=== PATIENT | female | born 1940 | race Caucasian/White ===

== ENCOUNTER 2019-08-27 15:55 | Inpatient (IN) | payer MEDICARE, OTHER ==
[~2019-08-27] VITALS: Ht 157.5 cm; Wt 43.5 kg
--- NOTE | 2019-08-27 16:10 | NUR ---
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 PT STATES "UNABLE TO SLEEP, FEELING ANXIOUS, FEELS UNPRODUCTIVE, NOT MAINTAINING HEALTH AND STATES SHE DOESN'T WANT TO LIVE." PT STATES FEELING ISOLATED AND IS LOSING HER MIND. PT UNABLE TO PROVIDE A PLAN OF SELF CARE AT THIS MIRNA STATING "ANXIETY STOPS ME FROM LIVING". PT ENDORSES DEPRESSIVE THOUGHTS WITH SI PLAN TO GET HIT BY A BUS. PT STATES "UNABLE TO SLEEP, FEELING ANXIOUS, FEELS UNPRODUCTIVE, NOT MAINTAINING HEALTH AND STATES SHE DOESN'T WANT TO LIVE." PT STATES FEELING ISOLATED AND IS LOSING HER MIND. PT UNABLE TO PROVIDE A PLAN OF SELF CARE AT THIS MIRNA STATING "ANXIETY STOPS ME FROM LIVING". UPON FACE TO FACE PT REPORTS PASSIVE SI WITH THOUGHTS OF GETTING HIT BY A BUS. PT DNIES AH/VH. MOOD IS DEPRESSED, ANXIOUS, FLAT. PT IS AMBULATORY WITH UNSTEADY GAIT. SPEECH IS CLEAR AND PT A+OX3. PT DISHEVELED. PT IS A FALL RISK.VSS, MEDICATION RECONCILIATION DONE BY DR. LLOYD. ALLERGIES RECORDED. VALUABLES NOTED AND PLACED IN SAFE. PT GIVEN PATIENT'S RIGHTS AND GUIDE TO PRESCRIPTION MEDICATION. PT ORIENTED TO THE UNIT. WILL CONT TO MONITOR Q15MIN AND PRN FOR SAFETY AND BEHAVIOR.
[2019-08-27 16:38] VITALS: BP 147/89
[2019-08-27] MEDS ORDERED: ASPI-605 PO (16:41)
[2019-08-27] MEDS ORDERED: FORTICAL (16:41)
[2019-08-27] MEDS ORDERED: MAG355OR18 PO (16:41)
[2019-08-27] MEDS ORDERED: MIRT30TA PO (16:43)
[2019-08-27] MEDS ORDERED: METO25TA4 PO (16:43)
[2019-08-27] MEDS ORDERED: LIFITEGRAST OP (16:43)
[2019-08-27] MEDS ORDERED: MAG HYDROX/AL HYDROX/SIMETH 30 ML UDC PO PRN (17:00)
[2019-08-27] MEDS ORDERED: BLOOD SUGAR DIAGNOSTIC 1 EACH STRIP IN ONE (17:00)
[2019-08-27] MEDS ORDERED: MAGNESIUM HYDROXIDE 30 ML UDC PO PRN (17:00)
[2019-08-27 18:32] VITALS: BP 147/71
[2019-08-27 20:14] VITALS: BP 138/83
[2019-08-28 08:00] VITALS: BP 151/89
[2019-08-28] MEDS: METOPROLOL SUCCINATE 25 MG TAB.SR.24H PO SCH (08:15)
[2019-08-28] MEDS: ASPIRIN EC 81 MG TABLET.DR PO SCH (08:15)
[2019-08-28] MEDS: clonazePAM 0.5 MG TABLET PO PRN ×2 (08:16→18:57)
[2019-08-28] MEDS: POLYVINYL ALCOHOL 15 ML BOTTLE EACHEYE PRN (12:16)
--- NOTE | 2019-08-28 14:22 | NUR ---
Group Note: SW went to patient's room to invite patient to attend today's support group at 1:00pm regarding holidays sensory activity and gratefulness being held in the activities room. Pt. was still having lunch and stated, "I want to do an exercise activity". SW informed pt. that a more clinical approach would be seen in SS Groups. However, SW encouraged pt. to suggest the idea of exercise activity to the case management coordinator for the future. SW encouraged pt. to attend or just sit in SS group. However, pt. expressed that she was not interested. Pt. presented with a flat affect and mood congruency.
[2019-08-28 16:00] VITALS: BP 135/81
[2019-08-28 21:14] VITALS: BP 121/62
[2019-08-28 21:24] VITALS: BP 121/62
[2019-08-28] MEDS: MIRTAZAPINE 15 MG TABLET PO SCH (22:07)
--- NOTE | 2019-08-29 06:19 | NUR ---
GPS RN NOTES: LABORATORY CAME TO DRAW MORNING LABS FOR PT. PT REFUSED FOR LABS TO BE DRAWN. EXPLAIN RISKS AND BENEFITS X3. PT STILL REFUSED. WILL CONT TO MONITOR.
[2019-08-29 08:00] VITALS: BP 132/78
[2019-08-29] MEDS: ASPIRIN EC 81 MG TABLET.DR PO SCH (08:48)
[2019-08-29] MEDS: METOPROLOL SUCCINATE 25 MG TAB.SR.24H PO SCH (08:48)
[2019-08-29] MEDS: clonazePAM 0.5 MG TABLET PO PRN (09:24)
[2019-08-29] MEDS: POLYVINYL ALCOHOL 15 ML BOTTLE EACHEYE PRN ×2 (09:27→22:28)
--- NOTE | 2019-08-29 09:28 | NUR ---
GPS RN NOTE: CLONAZEPAM ADMINISTERED PRN REQUESTED FOR ANXIETY
--- NOTE | 2019-08-29 11:20 | NUR ---
Family Contact: AYANA called Nereida ([phone]), pts daughter and DPOA, and discussed the pts initial discharge plan and treatment plan. It was discussed that the pt would return to live with her.
--- NOTE | 2019-08-29 11:46 | NUR ---
Initial Discharge Plan: Pt currently resides with her daughter and DPOA, Nereida ([phone]), in her home located at [address] [place] [address]. Per pts daughter, Nereida, the pt will continue to live with her in her home. SW will work with the pt and the MD regarding appropriate discharge planning. SW will form a safe and proper plan.
[2019-08-29 13:02] LABS: BASOPHILS % (AUTO) 0.6 % (0.0-2.0); EOSINOPHILS % (AUTO) 0.6 % (0.0-6.0); HEMATOCRIT 47 % (33-45); HEMOGLOBIN 15.5 g/dL (11.5-14.8); LYMPHOCYTES # (AUTO) 1.7 /CMM (0.8-4.8); LYMPHOCYTES % (AUTO) 20.8 % (20.0-44.0); MEAN CORPUSCULAR HGB CONC 33 g/dl (31.0-36.0); MEAN CORPUSCULAR VOLUME 92 fL (82-100); MONOCYTES # (AUTO) 0.7 /CMM (0.1-1.30); MONOCYTES % (AUTO) 8.6 % (2.0-12.0); NEUTROPHILS # (AUTO) 5.7 /CMM (1.8-8.9); NEUTROPHILS % (AUTO) 69.4 % (43.0-81.0); PLATELET COUNT (AUTO) 239 /CMM (150-450); RED BLOOD CELL COUNT(AUTO) 5.07 MIL/uL (4.0-5.2); WHITE BLOOD COUNT (AUTO) 8.2 K/uL (4.3-11.0)
[2019-08-29 13:15] LABS: CALCIUM, SERUM 9.3 mg/dL (8.5-10.1); POTASSIUM 4.4 mmol/L (3.5-5.1)
--- NOTE | 2019-08-29 14:55 | NUR ---
SS Group Note 08/29/19: SW to invite patient to attend today's support group at 1:00pm regarding Mindfulness in the activities room. Patient appears lethargic and has a flat affect that is mood congruent. Pt. stated she would be in attendance but did not show. SW will invite the pt. to at least sit in on next activity.
[2019-08-29 16:00] VITALS: BP 100/67
[2019-08-29] MEDS: ENSURE ENLIVE 237 ML LIQUID (VANILLA) PO SCH (16:43)
[2019-08-29 20:04] VITALS: BP 98/63
[2019-08-29] MEDS: MIRTAZAPINE 15 MG TABLET PO SCH (21:04)
[2019-08-29] MEDS: TEMAZEPAM 7.5 MG CAPSULE PO PRN (23:26)
[2019-08-29] MEDS: ACETAMINOPHEN 325 MG TABLET PO PRN (23:30)
--- NOTE | 2019-08-29 23:32 | NUR ---
GPS RN NOTES: PT STATED, "I CANT GO TO SLEEP." CHECKED VITALS AND WNL. OFFERED RESTORIL 7.5MG PO PRN. ADMINISTERED MEDICATION. PT TOLERATED WELL CONTINUE TO MONITOR
--- NOTE | 2019-08-29 23:34 | NUR ---
GPS RN NOTES: PT STATED, "I HAVE A HEADACHE. CAN I HAVE TYLENOL PLEASE?" ASKED RESIDENT PAIN SCALE PT SAID 3 OUT OF 10. ADMINISTERED TYLENOL 650MG PO PRN @2330. PT TOLERATED MED WELL. CONT TO MONITOR.
[2019-08-29 23:37] VITALS: BP 132/86
[2019-08-30 08:00] VITALS: BP 140/94
[2019-08-30] MEDS: ENSURE ENLIVE 237 ML LIQUID (VANILLA) PO SCH ×3 (09:12→17:47)
[2019-08-30] MEDS: METOPROLOL SUCCINATE 25 MG TAB.SR.24H PO SCH (09:12)
[2019-08-30] MEDS: ASPIRIN EC 81 MG TABLET.DR PO SCH (09:12)
[2019-08-30 16:00] VITALS: BP 110/68
[2019-08-30 20:00] VITALS: BP 119/60
[2019-08-30] MEDS: MIRTAZAPINE 15 MG TABLET PO SCH (20:55)
[2019-08-30] MEDS: TEMAZEPAM 7.5 MG CAPSULE PO PRN (20:56)
[2019-08-30] MEDS: POLYVINYL ALCOHOL 15 ML BOTTLE EACHEYE PRN (20:56)
[2019-08-30] MEDS: XIIDRA 5% OP SCH (21:00)
[2019-08-30] MEDS: EYE OP SCH (21:00)
[2019-08-31 08:00] VITALS: BP 123/67
[2019-08-31] MEDS: ASPIRIN EC 81 MG TABLET.DR PO SCH (08:27)
[2019-08-31] MEDS: METOPROLOL SUCCINATE 25 MG TAB.SR.24H PO SCH (08:28)
[2019-08-31] MEDS: EYE OP SCH ×2 (08:29→21:00)
[2019-08-31] MEDS: XIIDRA 5% OP SCH ×2 (08:29→21:00)
[2019-08-31] MEDS: ENSURE ENLIVE 237 ML LIQUID (VANILLA) PO SCH ×3 (08:33→16:58)
[2019-08-31] MEDS: ACETAMINOPHEN 325 MG TABLET PO PRN (08:40)
[2019-08-31 16:00] VITALS: BP 130/70
[2019-08-31 19:45] VITALS: BP 114/71
[2019-08-31] MEDS: MIRTAZAPINE 15 MG TABLET PO SCH (21:19)
[2019-08-31] MEDS: TEMAZEPAM 7.5 MG CAPSULE PO PRN (21:19)
[2019-08-31] MEDS: POLYVINYL ALCOHOL 15 ML BOTTLE EACHEYE PRN (21:26)
--- NOTE | 2019-08-31 21:26 | NUR ---
GPS RN NOTE: PATIENT REFUSED XIIDRA EYE DROP AND REQUESTED TO HAVE THE ARTIFICIAL TEAR INSTEAD BECAUSE PER PATIENT, SHE CAN NOT SLEEP WITH XIIDRA. WILL CONTINUE TO MONITOR Q15 MINS FOR SAFETY
[2019-09-01] MEDS: clonazePAM 0.5 MG TABLET PO PRN (07:01)
[2019-09-01 08:00] VITALS: BP 146/83
[2019-09-01] MEDS: ENSURE ENLIVE 237 ML LIQUID (VANILLA) PO SCH ×3 (08:39→17:02)
[2019-09-01] MEDS: METOPROLOL SUCCINATE 25 MG TAB.SR.24H PO SCH (08:39)
[2019-09-01] MEDS: XIIDRA 5% OP SCH ×2 (08:42→21:00)
[2019-09-01] MEDS: EYE OP SCH ×2 (08:42→21:00)
[2019-09-01] MEDS: ASPIRIN EC 81 MG TABLET.DR PO SCH (08:43)
[2019-09-01] MEDS: POLYVINYL ALCOHOL 15 ML BOTTLE EACHEYE PRN ×2 (09:24→21:40)
--- NOTE | 2019-09-01 09:27 | NUR ---
RN NOTE: PRN ARTIFICIAL TEARS WERE GIVEN FOR DRY EYES
--- NOTE | 2019-09-01 10:21 | NUR ---
Family Contact: SW called Nereida ([phone]), pts daughter and DPOA, and left a voicemail message stating that she would like to discuss the pts treatment.
--- NOTE | 2019-09-01 14:14 | NUR ---
PC Hearing Notification: SW called Nereida ([phone]), pts daughter and DPOA, and informed her of the hearing and what it entails.
--- NOTE | 2019-09-01 15:05 | NUR ---
GROUP NOTE: SW encouraged pt to participate in group therapy discussing "discharge planning," pt refused to attend and stated she did not need to be here and wanted to leave today. SW provided intervention and discussed pts depression and suicidal ideation, pt in denial stating she never made suicidal statements and was not crazy. Pt is isolative and withdrawn.
[2019-09-01 16:00] VITALS: BP 104/70
[2019-09-01 20:46] VITALS: BP 112/63
[2019-09-01] MEDS: MIRTAZAPINE 15 MG TABLET PO SCH (21:37)
[2019-09-01] MEDS: ACETAMINOPHEN 325 MG TABLET PO PRN (21:43)
--- NOTE | 2019-09-01 21:44 | NUR ---
GPS RN NOTES: PT REFUSED XIIDRA 5% EYE DROP. EXPLAIN RISKS AND BENEFITS. STILL REFUSED. PT STATED, " I WANT MY OTHER EYE DROPS." ADMINISTERED ARTIFICIAL TEARS TO PT. PT TOLERATED WELL. CONT TO MONITOR
--- NOTE | 2019-09-01 21:48 | NUR ---
GPS RN NOTES: PT C/O OF HEAD ACHE. PT STATED, "CAN I HAVE TYLENOL?" ADMINISTERED TYLENOL 650 MG PO PRN ORDERED. CONT TO MONITOR
[2019-09-02 08:00] VITALS: BP 134/84
[2019-09-02 08:38] VITALS: BP 134/84
[2019-09-02] MEDS: METOPROLOL SUCCINATE 25 MG TAB.SR.24H PO SCH (08:38)
[2019-09-02] MEDS: ASPIRIN EC 81 MG TABLET.DR PO SCH (08:38)
[2019-09-02] MEDS: EYE OP SCH (08:39)
[2019-09-02] MEDS: ENSURE ENLIVE 237 ML LIQUID (VANILLA) PO SCH ×2 (08:39→12:38)
[2019-09-02] MEDS: XIIDRA 5% OP SCH (08:39)
--- NOTE | 2019-09-02 08:39 | NUR ---
Family Contact: AYANA called Nereida ([phone]), pts daughter and DPOA, and informed her that the pt is going to be discharged back to her care at around 1pm as was requested the previous day. Pts daughter inquired about the prescriptions and it was stated that the prescription would be presented to her at the time of pickup with the pts nurse.
--- NOTE | 2019-09-02 14:47 | NUR ---
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 PATIENT IS IN STABLE CONDITION. VSS. NO ACUTE DISTRESS NOTED. NO COMPLAINTS. COMPLIANT WITH MEDICATION MANAGEMENT. COOPERATIVE WITH PLAN OF CARE. PSYCHIATRIC TREATMENT PLANS MET. MEDICAL TREATMENT PLANS DEFERRED FOR CONTINUAL MONITORING. DENIES SI/HI VAH AT THE TIME OF DISCHARGE. SKIN INTACT. EDUCATED PATIENT ABOUT AFTERCARE WITH COPY PROVIDED. RETURNED PERSONAL BELONGINGS TO PATIENT. MEDICATIONS RECONCILED WITH ALONG WITH PSYCHIATRIC DISCHARGE ORDERS. DISCHARGE PAPERWORK SIGNED. FOR FOLLOW UP WITH PSYCHIATRIST DR HARMONY PERAZA [address] [place] [address] [address] [facility] ALCON LAROSE [address] [place] [address] WITHIN 1 WEEK. PATIENT LEFT SO GPS WITH DAUGHTER (MIKY) AT 1320. Addendum: 09/02/19 at 1501 by COLLIN ROJAS RN MED RECON COMPLETE DONE WITH DR CONTEH AND DR MARTINEZ ALONG WITH PSYCHIATRY DC ORDERS
--- NOTE | 2019-09-02 15:55 | NUR ---
Discharge Note: Pt was discharged to daughters home [address] [place] [address]. Pts daughter, Nereida ([phone]), pts daughter and DPOA, picked up the pt at 1pm. Upon discharge, the pt appeared to be in a euthymic mood and presented with an anxious affect. Pt denied both suicidal and homicidal ideation as well as auditory and visual hallucinations. Pt was referred to be under the care of his psychiatrist, Dr. Dylon Lal, located at [address] [facility] [address] [address]; ; and a fax of records to: . Pt has an intake appointment set for 09/09/19 at 10:30AM. Pt will be under the care of her creative resource manager, Dr. Autumn Lee, located at [address] [facility] [address], [place] [address]; .
== END 2019-09-02 13:20 | disposition home or self-care (01) | DRG 885 ==
LOC: GPS 15:55
PROVIDERS: ADMIT Psychiatry & Neurology Psychiatry; ATTEND Internal Medicine
DX: F33.2 Major depressive disorder, recurrent severe without psychotic features (principal); R45.851 Suicidal ideations; Z68.1 Body mass index [BMI] 19.9 or less, adult; E44.0 Moderate protein-calorie malnutrition; I10 Essential (primary) hypertension; I25.10 Atherosclerotic heart disease of native coronary artery without angina pectoris; Z73.6 Limitation of activities due to disability; F29 Unspecified psychosis not due to a substance or known physiological condition; D17.79 Benign lipomatous neoplasm of other sites
CPT/HCPCS: 36415; 80048-TC; 82962-TC; 85025-TC; 87081-TC